=== PATIENT | female | born 1980 | race Caucasian/White ===

== ENCOUNTER 2020-08-01 19:00 | Emergency (ER) | payer OTHER, SELFPAY ==
--- NOTE | ~2020-08-01 | CT_ITS ---
EXAMINATION: CT abdomen pelvis w con DATE: 08/01/2020 21:30 INDICATION: Diverticulitis. TECHNIQUE: Computed tomography (CT) of the abdomen and pelvis was performed with 100 mL Omnipaque 350 intravenous contrast. Automated exposure control and iterative reconstruction technique were employe d. The dose-length product was 517.91 mGy-cm. COMPARISON: CT abdomen and pelvis 03/14/2016 FINDINGS: The visualized portions of the lung bases demonstrate mild atelectasis. No pleural effusion . The heart size is normal. No pericardial effusion. There is a 6 mm cyst in the liver. The spleen, g allbladder, pancreas, adrenal glands, and kidneys are normal. There are scattered diverticula in the colon. There is fat stranding around a diverticulum of distal descending colon with local bowel wall thickening, consistent with diverticulitis. There is trace free fluid in left paracolic gutter. There are no dilated loops of bowel. The appendix is normal. There are no pathologically enlarged lymph no jennifer. There is no free intraperitoneal fluid. There is mild thoracolumbar spondylosis. IMPRESSION: 1. Acute diverticulitis of distal descending colon. No perforation or abscess. Reviewed, dictated and finalized at location A.
[2020-08-01 19:02] VITALS: BP 135/70; PULSE 105; RESP 18; TEMP 36.4; O2SAT 96
--- NOTE | 2020-08-01 19:35 | ED.ABDPAIN ---
HPI - Abdominal Pain General Chief Complaint: Abdominal Pain Stated Complaint: abd pain Time Seen by Provider: 08/01/20 19:17 Source: patient Mode of arrival: ambulatory Limitations: no limitations History of Present Illness HPI narrative: Patient is 40 years old white female presents with left lower quadrant pain, sharp, stabbing, no radiation started yesterday. Associated with nausea, fever up to 102, bloating. History of diverticulitis. Patient denies any chest pain or back pain. Related Data Allergies Allergy/AdvReac Type Severity Reaction Status Date / Time No Known Allergies Allergy Verified 08/01/20 19:04 Review of Systems Review of Systems: Narrative: CONSTITUTIONAL: Denies fever, chills, or sweats. EYES: Denies visual changes, redness, or discharge. ENT: Denies rhinorrhea, congestion, sore throat, or otalgia. CARDIOVASCULAR: Denies chest pain, palpitations, or edema. RESPIRATORY: Denies cough or dyspnea. GASTROINTESTINAL: Denies abdominal pain, nausea, vomiting, or diarrhea. GENITOURINARY: Denies dysuria or hematuria. SKIN: Denies rash or itching. MUSCULOSKELETAL: Denies back pain, joint pain, or myalgia. NEUROLOGIC: Denies headache, numbness, or weakness. PSYCHIATRIC: Denies anxiety or depression. [facility] Past Medical History Medical History (Updated 08/01/20 @ 22:04 by Nirav Winter MD) Vaginal delivery x 2 Family History Family History Father Hypertension Family history of type 2 diabetes mellitus Diabetes mellitus Mother Family history of malignant neoplasm of kidney Social History Social History Smoking status: Never smoker Second hand tobacco smoke exposure: No Alcohol intake: current Exam Narrative: Exam Narrative: General appearance: Well-developed, well-nourished, looks in pain Skin: Normal color Head: Normocephalic, nontraumatic Eyes: Clear conjunctiva ENT: Oropharynx normal, ears normal, nose normal Neck: Supple, nontender Chest and respiratory: Airway patent, no respiratory distress, no accessory muscle use Heart: Regular rate/rhythm Abdomen: Soft, moderate tenderness to left mid abdomen, no organomegaly, quiet bowel sounds Vascular: Normal peripheral pulses, normal capillary refill. Musculoskeletal: Normal range of motion, nontender back Neurologic: Alert and oriented ?3, [employer] is normal as tested, no gross motor deficit Course Course Emergency Course: Improving Reevaluation(s) Reevaluation #1: Patient feeling great, currently asymptomatic, denies any nausea or vomiting. Patient is agreeable to go home, is able to keep fluid and tablets down. Date: 08/01/20 Time: 22:06 Vital Signs Vital signs: Vital Signs Temperature 36.4 C 08/01/20 19:02 Pulse Rate 105 H 08/01/20 19:02 Respiratory Rate 18 08/01/20 19:02 Blood Pressure 135/70 08/01/20 19:02 Pulse Oximetry 96 08/01/20 19:02 Temperature 36.4 C 08/01/20 19:02 Pulse Rate 105 H 08/01/20 19:02 Respiratory Rate 18 08/01/20 19:02 Blood Pressure 135/70 08/01/20 19:02 Pulse Oximetry 96 08/01/20 19:02 MDM - Abdominal Pain MDM Narrative Medical decision making narrative: Left lower quadrant pain. Acute diverticulitis is my concern. Labs, CT abdomen pelvis with IV contrast, IV fluid, IV morphine and Zofran ordered. Further plan to follow Differential Diagnosis Differential diagnosis: Likely abdominal pain, constipation and diverticulitis Imaging Data Radiologist's impression: Impressions Abdomen/Pelvis CT 08/01/20 21:30 IMPRESSION: 1. Acute diverticulitis of distal descending colon. No perforation or
[2020-08-01] MEDS: MORPHINE SULFATE (*CRX) 4 MG/ML INJ IV PUSH (19:41)
[2020-08-01] MEDS: ONDANSETRON INJ 4 MG/2 ML VIAL IV PUSH (19:41)
[2020-08-01] MEDS: SODIUM CHLORIDE 0.9% IV 1,000 ML 999 ML IV CONT (19:41)
--- NOTE | 2020-08-01 19:49 | PC.NURSE ---
Patient's bedside glucose is 180.
[2020-08-01 19:51] LABS: Glucose Point of Care 180 (65-105)
[2020-08-01 20:00] LABS: Basophils Percent Auto 0.2 % (0.2-1.2); Eosinophils Absolute Auto 0.1 K/mm3 (0-0.3); Eosinophils Percent Auto 0.7 % (0-4.4); Hematocrit 35.2 % (37.0-47.0); Hemoglobin 11.8 g/dL (12.0-15.0); Immature Granulocyte Absolute 0.03 K/mm3 (0.00-0.031); Immature Granulocyte Percent A 0.4 % (0-0.5); Lymphocytes Absolute Auto 1.59 K/mm3 (0.9-3.2); Lymphocytes Percent Auto 19.8 % (18.3-44.2); Mean Corpuscular HGB Conc 33.5 g/dl (32-36); Mean Corpuscular Hemoglobin 31.1 pg (26-34); Mean Corpuscular Volume 92.9 fl (80-100); Mean Platelet Volume 9.3 fl (7.4-10.4); Monocytes Absolute Auto 0.6 K/mm3 (0.1-0.6); Monocytes Percent Auto 7.6 % (2.6-8.5); Neutrophils Absolute Auto 5.7 K/mm3 (1.3-6.7); Neutrophils Percent Auto 71.3 % (45.5-73.1); Platelet Count Result 183 k/mm3 (150-375); Red Blood Count 3.79 M/mm3 (4.2-5.4); Red Cell Distribution Width 11.6 % (11.5-14.5)
[2020-08-01 20:16] LABS: Alanine Aminotransferase 15 U/L (4-35); Albumin Level 3.9 g/dL (3.5-5.1); Alkaline Phosphatase 53 U/L (38-126); Anion Gap 6 mmol/L (8-16); Aspartate Amino Transferase 23 U/L (14-36); Bilirubin,Total 0.4 mg/dL (0.2-1.3); Blood Urea Nitrogen 11 mg/dL (7-17); Calcium 8.9 mg/dL (8.4-10.2); Carbon Dioxide 27 mmol/L (22-30); Chloride 105 mmol/L (98-107); Estimated CRCL calculation 73 ml/min; Estimated Glomerular Filt Rate > 60; Glucose 193 mg/dL (65-105); Lipase 51 U/L (23-300); Potassium 3.5 mmol/L (3.4-5.0); Sodium 138 mmol/L (137-145)
[2020-08-01 20:26] LABS: Add Urine Microscopic? YES; Appearance Urine Clear (Clear); Bacteria Urine Trace /hpf; Bilirubin Urine Negative (Negative); Blood Urine 1+ (Negative); Color Urine Yellow (Yellow); Glucose Urine UA Negative (Negative); Ketones Urine Negative (Negative); Leukocyte Esterase Ur Negative LEU/UL (Negative); Mucus Urine Rare /lpf; Nitrate Urine Negative (Negative); Protein Urine Negative (Negative); RBC Urine 0-2 /hpf (0-2); Specific Grav Ur 1.009 (1.001-1.035); Squamous Epithelial Cell Urine Rare /hpf (Few); Urobilinogen Urine Negative mg/dL (<2.0); WBC Urine 0-3 /hpf
[2020-08-01] MEDS: metroNIDAZOLE 250 MG TABLET 500 MG PO (22:08)
[2020-08-01 22:20] VITALS: BP 104/52; PULSE 73; RESP 18; O2SAT 100
== END 2020-08-01 22:21 | disposition home or self-care (01) ==
PROVIDERS: Emergency Provider Emergency Medicine; PCP Physician Assistant
DX: K57.32 Diverticulitis of large intestine without perforation or abscess without bleeding (principal)
CPT/HCPCS: 36415; 74177; 80053; 81001; 81025; 83690; 85025; 96361; 96374; 96375; 99284; A9270; J2270; J2405; J7030; Q9967

== ENCOUNTER 2020-12-08 12:47 | Outpatient (CLI) | payer OTHER, SELFPAY ==
[2020-12-08 13:11] LABS: Basophils Percent Auto 0.4 % (0.2-1.2); Eosinophils Absolute Auto 0.1 K/mm3 (0-0.3); Eosinophils Percent Auto 1.1 % (0-4.4); Hematocrit 40.1 % (37.0-47.0); Hemoglobin 13.4 g/dL (12.0-15.0); Immature Granulocyte Absolute 0.02 K/mm3 (0.00-0.031); Immature Granulocyte Percent A 0.4 % (0-0.5); Lymphocytes Absolute Auto 1.38 K/mm3 (0.9-3.2); Lymphocytes Percent Auto 25.4 % (18.3-44.2); Mean Corpuscular HGB Conc 33.4 g/dl (32-36); Mean Corpuscular Hemoglobin 31.7 pg (26-34); Mean Corpuscular Volume 94.8 fl (80-100); Mean Platelet Volume 9.4 fl (7.4-10.4); Monocytes Absolute Auto 0.4 K/mm3 (0.1-0.6); Monocytes Percent Auto 6.4 % (2.6-8.5); Neutrophils Absolute Auto 3.6 K/mm3 (1.3-6.7); Neutrophils Percent Auto 66.3 % (45.5-73.1); Platelet Count Result 240 k/mm3 (150-375); Red Blood Count 4.23 M/mm3 (4.2-5.4); Red Cell Distribution Width 11.7 % (11.5-14.5); White Blood Count 5.4 K/mm3 (4.5-10.0)
[2020-12-08 13:21] LABS: Alanine Aminotransferase 16 U/L (4-35); Albumin Level 4.5 g/dL (3.5-5.1); Alkaline Phosphatase 65 U/L (38-126); Anion Gap 7 mmol/L (8-16); Aspartate Amino Transferase 23 U/L (14-36); Bilirubin,Total 0.6 mg/dL (0.2-1.3); Blood Urea Nitrogen 13 mg/dL (7-17); Calcium 9.8 mg/dL (8.4-10.2); Carbon Dioxide 27 mmol/L (22-30); Chloride 105 mmol/L (98-107); Cholesterol 248 mg/dL (0-200); Estimated Glomerular Filt Rate > 60; Glucose 103 mg/dL (65-110); HDL Direct 75 mg/dL; Potassium 4.3 mmol/L (3.4-5.0); Sodium 139 mmol/L (137-145); Triglycerides 163 mg/dL (<150)
[2020-12-08 13:32] LABS: LDL Cholesterol Direct 118 mg/dL
[2020-12-08 14:09] LABS: Vitamin D 25 Hydroxy 50.5 ng/mL
== END 2020-12-08 12:48 | disposition home or self-care (01) ==
LOC: ANHLAB 12:50
PROVIDERS: PCP Physician Assistant; Visit Provider Obstetrics & Gynecology
DX: Z01.419 Encounter for gynecological examination (general) (routine) without abnormal findings (principal)
CPT/HCPCS: 36415; 80053; 80061; 82306; 84443; 85025

== ENCOUNTER → 2022-11-08 08:10 | Outpatient (CLI) | payer OTHER, SELFPAY ==
--- NOTE | ~2022-11-08 | US_ITS ---
EXAMINATION: US thyroid DATE: 11/08/2022 08:36 INDICATION: Right thyroid tenderness with possible palpable nodule. TECHNIQUE: Multiple ultrasound images of the thyroid were obtained. COMPARISON: None. FINDINGS: The right thyroid lobe measures 5.0 x 1.9 x 1.8 cm. The left thyroid lobe measures 3.6 x 1.3 x 1.0 c m. Thyroid isthmus measures 3 mm in thickness. No discrete nodules identified. Heterogeneous diffuse decreased echogenicity and coarsened echotexture throughout the thyroid. IMPRESSION: 1. Mild asymmetric enlargement of the right thyroid lobe with diffuse heterogeneous decreased echogen icity and coarsened echotexture bilaterally throughout the thyroid which could be seen in the setting of thyroiditis. No discrete thyroid nodules. Reviewed, dictated and finalized at location A. IMPRESSION: 1. Mild asymmetric enlargement of the right thyroid lobe with diffuse heterogen eous decreased echogenicity and coarsened echotexture bilaterally throughout th e thyroid which could be seen in the setting of thyroiditis. No discrete thyroi d nodules.
== END ==
PROVIDERS: PCP Nurse Practitioner Family; Visit Provider Nurse Practitioner Family
DX: E07.89 Other specified disorders of thyroid (principal)
CPT/HCPCS: 76536

== ENCOUNTER 2023-08-18 07:49 | Outpatient (CLI) | payer OTHER, SELFPAY ==
--- NOTE | ~2023-08-18 | US_ITS ---
EXAMINATION: US soft tissue lower back DATE: 08/18/2023 08:16 INDICATION: Mass of spine. TECHNIQUE: Multiple grayscale and Doppler ultrasound images of the lower back were obtained. COMPARISON: None FINDINGS: In the lower back superficial to the spinous processes, there is a 1.4 x 0.8 x 0.4 cm hypoe choic mass. IMPRESSION: 1. Small subcutaneous mass superficial to the spinous processes, likely inflammation or a hematoma. Reviewed, dictated and finalized at location E. IMPRESSION: 1. Small subcutaneous mass superficial to the spinous processes, likely inflamm ation or a hematoma.
== END 2023-08-18 07:50 ==
PROVIDERS: PCP Nurse Practitioner Family; Visit Provider Nurse Practitioner Family
DX: M89.8X8 Other specified disorders of bone, other site (principal)
CPT/HCPCS: 76705

== ENCOUNTER 2023-09-05 05:54 | Day surgery (SDC) | payer OTHER, SELFPAY ==
[2023-07-05 10:35] VITALS: BMI 31.8
[2023-08-21 09:49] VITALS: BMI 30.2
--- NOTE | 2023-09-04 14:02 | PM.HPGS ---
History of Present Illness History of Present Illness Consent: Risks, benefits, and alternatives have been discussed and questions answered. Patient agrees to proceed with procedure. Chief complaint: Screening for malignant neoplasm of colon Narrative: Kenyatta Ann is a 43 year old female who is referred for colon cancer screening. Review of Systems Review of Systems: All systems reviewed & are unremarkable except as noted in HPI and below PMFSH Past Medical History Medical History Ulnar neuropathy Vaginal delivery x 2 Surgical History Surgical History History of surgery on arm x3 Family History Family History Father Hypertension Family history of type 2 diabetes mellitus Diabetes mellitus Mother Family history of malignant neoplasm of kidney Social History Social History Smoking status: Former smoker Tobacco type: cigarettes Second hand tobacco smoke exposure: No Alcohol intake: current Drinks per week: 3 Substance use: never Substance use type: does not use Do You Feel Safe in your Home?: Yes Lack of Transportation: No Lack of Food: Never True Current Housing: I Have Housing Concerned About Future Housing: No Difficulty Paying Gas/Electric Bills: No Difficulty Paying for Meds: No Currently Unemployed: No Education: Bachelor's Degree Difficulty w/ Childcare or Family Care: No Living arrangements: with family Spiritual care concerns: No Meds Home Medications and Allergies Home Medications Medication Instructions Recorded Confirmed Type No Home Medications 12/23/21 09/05/23 History Allergies Allergy/AdvReac Type Severity Reaction Status Date / Time No Known Allergies Allergy Verified 09/05/23 06:16 Exam Resp: Auscultation: clear to auscultation bilaterally Cardio: Rate: regular rate Rhythm: regular rhythm GI: GI Palp: Yes Soft to palpation and No Tenderness to palpation present (GI) Assessment and Plan Assessment and plan (1) Colon cancer screening: Code(s): Z12.11 - Encounter for screening for malignant neoplasm of colon Status: Acute Assessment and Plan: Colonoscopy with possible biopsy or polypectomy or cautery or injection of substances.
[2023-09-05 06:21] VITALS: BMI 31.1
[2023-09-05 06:22] VITALS: BP 112/74; PULSE 82; RESP 16; TEMP 36.5; O2SAT 99
[2023-09-05] MEDS: LACTATED RINGERS 1,000 ML 150 ML IV CONT (07:25)
--- NOTE | 2023-09-05 07:28 | P.PNAN_ITS ---
Anes - Initial Pre Proc Eval Procedure: Operation Date: 09/05/23 07:30 Proposed Procedures p Screening Colonoscopy - Chele Martins MD Date/Time: 09/05/23 07:28 Surgeon: Chele Martins MD Pre Op Diagnosis: Screening for malignant neoplasm of colon Patient Data Age: 43 Gender: F Height: 1.57 m Weight: 77.1 kg Last Vital Signs Temp 36.5 C 09/05/23 06:22 Pulse 82 09/05/23 06:22 Resp 16 09/05/23 06:22 BP 112/74 09/05/23 06:22 Pulse Ox 99 09/05/23 06:22 O2 Del Method Room Air 09/05/23 06:22 Allergies Allergy/AdvReac Type Severity Reaction Status Date / Time No Known Allergies Allergy Verified 09/05/23 06:16 Home Medications Medication Instructions Recorded Confirmed Type No Home Medications 12/23/21 09/05/23 History Patient hx anesthesia problems: none Family hx anesthesia problems: none Results Review: All pre-operative results and documents have been reviewed as part of the pre- operative evaluation. PMFSH Past Medical History Medical History Ulnar neuropathy Vaginal delivery x 2 Surgical History Surgical History History of surgery on arm x3 Family History Family History Father Hypertension Family history of type 2 diabetes mellitus Diabetes mellitus Mother Family history of malignant neoplasm of kidney Social History Social History Smoking status: Former smoker Tobacco type: cigarettes Second hand tobacco smoke exposure: No Alcohol intake: current Drinks per week: 3 Substance use: never Substance use type: does not use Do You Feel Safe in your Home?: Yes Lack of Transportation: No Lack of Food: Never True Current Housing: I Have Housing Concerned About Future Housing: No Difficulty Paying Gas/Electric Bills: No Difficulty Paying for Meds: No Currently Unemployed: No Education: Bachelor's Degree Difficulty w/ Childcare or Family Care: No Living arrangements: with family Spiritual care concerns: No Anes - Eval Final PreProcedure Day of Procedure 09/05/23 07:28 Results Review: All pre-operative results and documents have been reviewed as part of the pre- operative evaluation. Informed Consent: The patient's anesthetic plan and its attendant risks and benefits were discu ssed with the patient/family/POA. Questions were solicited and answers provided to the satisfaction of the patient/family/POA.
[2023-09-05 07:49] VITALS: BP 85/57; PULSE 96; RESP 20; O2SAT 98
[2023-09-05 07:59] VITALS: BP 90/51; PULSE 80; RESP 18; O2SAT 100
[2023-09-05 08:09] VITALS: BP 98/66; PULSE 76; RESP 16; O2SAT 100
--- NOTE | 2023-09-05 08:13 | WPDANESPN ---
Anes - Prog Note Post-Op Date/Time: 09/05/23 08:13 Cardiovascular status: normal Respiratory status: normal Airway patency: baseline Mental status: baseline Post-Op hydration status: normal Vital Signs: Last Vital Signs Temp 36.5 C 09/05/23 06:22 Pulse 76 09/05/23 08:09 Resp 16 09/05/23 08:09 BP 98/66 L 09/05/23 08:09 Pulse Ox 100 09/05/23 08:09 O2 Del Method Room Air 09/05/23 08:09 Pain Score (VAS): 0/10 I/O: Intake & Output 09/04/23 09/05/23 09/05/23 23:59 07:59 15:59 Intake Total 200 Balance 200 Patient Feedback: Patient satisfied with anesthetic care.
[2023-09-05 08:19] VITALS: BP 100/60; PULSE 66; RESP 16; O2SAT 100
== END 2023-09-05 08:31 | disposition home or self-care (01) ==
PROVIDERS: PCP Nurse Practitioner Family; Visit Provider Internal Medicine Gastroenterology
PROC: 0DJD8ZZ Inspection of Lower Intestinal Tract, Via Natural or Artificial Opening Endoscopic (ICD-10-PCS; CPT 45378; principal; 2023-09-05 07:30)
DX: Z12.11 Encounter for screening for malignant neoplasm of colon (principal); K57.30 Diverticulosis of large intestine without perforation or abscess without bleeding
CPT/HCPCS: 45378